=== PATIENT | female | born 1985 | race Caucasian/White ===

== ENCOUNTER 2017-07-12 21:22 | Emergency (ER) | payer OTHER ==
[2017-07-12 21:39] VITALS: BP 111/57; PULSE 91; RESP 16; TEMP 99; O2SAT 100
--- NOTE | 2017-07-12 22:03 | ED PDOC ---
HPI: General Adult Time Seen by Provider: 07/12/17 21:39 Chief Complaint (Nursing): Flu-like Symptoms Chief Complaint (Provider): cough, congestion, and fever History Per: Patient History/Exam Limitations: no limitations Onset/Duration Of Symptoms: Days (7 days) Current Symptoms Are (Timing): Still Present Additional Complaint(s): 31 y/o female presents to the ED complaining of sore throat associated with cough and congestion, onset of 1 week. She reports of self medicating with amoxicillin, dayquil and nyquil because "she had some". Today she states that she developed intermittent rash throughout her body, and applied calamine lotion with transient relief. Of note, her son was recently sick and admitted to hospital last week for bronchiolitis. [ End ] Past Medical History Reviewed: Historical Data, Nursing Documentation, Vital Signs Vital Signs: Last Vital Signs Temp 99.0 F 07/12/17 21:35 Pulse 91 H 07/12/17 21:35 Resp 16 07/12/17 21:35 BP 111/57 L 07/12/17 21:35 Pulse Ox 100 07/12/17 22:03 - Medical History PMH: No Chronic Diseases - Surgical History Surgical History: No Surg Hx - Family History Family History: States: Unknown Family Hx - Living Arrangements Living Arrangements: With Family - Social History Current smoker - smoking cessation education provided: No Ex-Smoker (has not smoked in the last 12 months): No Alcohol: None Drugs: Denies - Home Medications Home Medications: Ambulatory Orders Medication Instructions Recorded Amoxicillin 875 mg PO BID #14 tablet 11/09/15 Albuterol HFA [Ventolin HFA 90 2 puff IH [id number] PRN #90 puff 07/12/17 mcg/actuation (8 g)] DiphenhydrAMINE [Benadryl] 50 mg PO Q6 PRN #30 cap 07/12/17 Promethazine DM [Phenergan DM 5 - 10 ml PO Q8 PRN #120 ml 07/12/17 Syrup] - Allergies Allergies/Adverse Reactions: Allergies Allergy/AdvReac Type Severity Reaction Status Date / Time No Known Allergies Allergy Verified 11/09/15 13:21 Review of Systems ROS Statement: Except As Marked, All Systems Reviewed And Found Negative Constitutional: Positive for: Fever ENT: Positive for: Nose Congestion Cardiovascular: Negative for: Chest Pain Respiratory: Positive for: Cough. Negative for: Shortness of Breath, Hemoptysis Physical Exam - Reviewed Nursing Documentation Reviewed: Yes Vital Signs Reviewed: Yes - Physical Exam Skin: Positive for: Rash (urticaria to left hip area) ENT: Positive for: Normal ENT Inspection Cardiovascular/Chest: Positive for: Regular Rate, Rhythm. Negative for: Murmur Respiratory: Positive for: Normal Breath Sounds. Negative for: Respiratory Distress - ECG O2 Sat by Pulse Oximetry: 100 (RA) Pulse Ox Interpretation: Normal Medical Decision Making Medical Decision Making: Time: --22:03 Impression: --31 y/o with flu-like symptoms Plan: --sent home with prescriptions Scribe Attestation: Documented by Hussein Santos acting as a scribe for EDWIGE Fritz. Disposition - Clinical Impression Clinical Impression: Upper respiratory infection - Disposition Referrals: Cirilo Brar MD [Family Provider] - Disposition Time: 22:03 Condition: STABLE Prescriptions: Albuterol HFA [Ventolin HFA 90 mcg/actuation (8 g)] 2 puff IH [id number] PRN #90 puff PRN Reason: Cough DiphenhydrAMINE [Benadryl] 50 mg PO Q6 PRN #30 cap PRN Reason: Rash Promethazine DM [Phenergan DM Syrup] 5 - 10 ml PO Q8 PRN #120 ml PRN Reason: Cough Instructions: Urticaria (ED), Upper Respiratory Infection (ED) Forms: [employer] (Hungarian) Print Language: UGANDAN
== END 2017-07-12 22:02 | disposition home or self-care (01) ==
LOC: H.ER 21:22
DX: J21.9 Acute bronchiolitis, unspecified (principal); Z87.891 Personal history of nicotine dependence

== ENCOUNTER 2018-10-10 18:23 | Emergency (ER) | payer SELFPAY ==
[2018-10-10 19:17] VITALS: RESP 18
--- NOTE | 2018-10-10 20:54 | ED PDOC ---
HPI: General Adult Time Seen by Provider: 10/10/18 19:31 Chief Complaint (Nursing): Weakness/Neurological Deficit Chief Complaint (Provider): Weakness/Neurological Deficit History Per: Patient History/Exam Limitations: no limitations Onset/Duration Of Symptoms: Days Current Symptoms Are (Timing): Still Present Additional Complaint(s): 32 y/o female presents to the ED stating that for the past six months she occasionally feels like passing while having a bowel movement. Patient reports that she feels like her blood pressure drops low while having a bowel movement on those occasions. Patient additionally complains of having intermittent shortness of breath for the past year associated with back pain that she has had for five years. Otherwise, patient denies chest pain, cough, palpitations and abdominal pain. Patient notes of having 1-2 bowel movements a week which is normal. PMD: Neeraj Green Past Medical History Reviewed: Historical Data, Nursing Documentation, Vital Signs Vital Signs: Last Vital Signs Temp 98 F 10/10/18 19:15 Pulse 60 10/10/18 19:15 Resp 18 10/10/18 19:15 BP 137/94 H 10/10/18 19:15 Pulse Ox 99 10/10/18 19:15 - Medical History PMH: No Chronic Diseases - Surgical History Surgical History: Hernia Repair - Family History Family History: States: Unknown Family Hx - Social History Current smoker - smoking cessation education provided: No Alcohol: None Drugs: Denies - Home Medications Home Medications: Ambulatory Orders Medication Instructions Recorded Amoxicillin 875 mg PO BID #14 tablet 11/09/15 Albuterol HFA [Ventolin HFA 90 2 puff IH [id number] PRN #90 puff 07/12/17 mcg/actuation (8 g)] DiphenhydrAMINE [Benadryl] 50 mg PO Q6 PRN #30 cap 07/12/17 Promethazine DM [Phenergan DM 5 - 10 ml PO Q8 PRN #120 ml 07/12/17 Syrup] - Allergies Allergies/Adverse Reactions: Allergies Allergy/AdvReac Type Severity Reaction Status Date / Time No Known Allergies Allergy Verified 10/10/18 19:15 Review of Systems ROS Statement: Except As Marked, All Systems Reviewed And Found Negative Cardiovascular: Negative for: Chest Pain, Palpitations Respiratory: Positive for: Shortness of Breath. Negative for: Cough Gastrointestinal: Negative for: Abdominal Pain Musculoskeletal: Positive for: Back Pain Neurological: Positive for: Other (LIGHTHEADEDNESS) Physical Exam - Reviewed Nursing Documentation Reviewed: Yes Vital Signs Reviewed: Yes - Physical Exam Appears: Positive for: Well, No Acute Distress Head Exam: Positive for: ATRAUMATIC, NORMOCEPHALIC Skin: Positive for: Normal Color, Warm, Dry Eye Exam: Positive for: Normal appearance, EOMI, PERRL Neck: Positive for: Normal, Painless ROM, Supple Cardiovascular/Chest: Positive for: Regular Rate, Rhythm. Negative for: Murmur Respiratory: Positive for: Normal Breath Sounds. Negative for: Respiratory Distress Gastrointestinal/Abdominal: Positive for: Normal Exam, Soft. Negative for: Tenderness Extremity: Positive for: Normal ROM. Negative for: Deformity Neurological/Psych: Positive for: Awake, Alert, Oriented (x3). Negative for: Motor/Sensory Deficits - Laboratory Results Result Diagrams: 10/10/18 21:41 10/10/18 21:41 - ECG O2 Sat by Pulse Oximetry: 99 (RA) Pulse Ox Interpretation: Normal - Radiology X-Ray: Interpreted by Me X-Ray Interpretation: No Acute Disease Medical Decision Making Medical Decision Making: Time: 2040 Plan: -- EKG -- CMP -- ED Urine -- ED Urine Dipstick -- CBC with Differentials -- D Dimer -- PTT -- Prothrombin Time -- CXR Two Views -- Orhto BP -- Urinalysis 23:20 Pt states she wants to leave and will come back for results tomorrow. Scribe Attestation: Documented by Eamon Shaw, acting as a scribe Mario Mariano MD. Provider Scribe Attestation: All medical record entries made by the Scribe were at my direction and personally dictated by me. I have reviewed the chart and agree that the record accurately reflects my personal performance of the history, physical exam, medical decision making, and the department course for this patient. I have also personally directed, reviewed, and agree with the discharge instructions and disposition. Disposition - Clinical Impression Clinical Impression: Defecation symptom, Chronic shortness of breath - Disposition Referrals: [facility] [Outside] Disposition: Routine/Home Disposition Time: 23:21 Condition: STABLE Instructions: Shortness of Breath (Dyspnea) Forms: [employer] (Spanish)
[2018-10-10 21:48] LABS: BASO % 0.6 % (0.0-2.0); EOS # 0.1 K/uL (0.0-0.7); EOS % 1.8 % (0.0-4.0); HEMOGLOBIN 15.1 g/dL (12.0-16.0); LYMPH % 32.8 % (20.0-40.0); MEAN CELL VOLUME 90.7 fl (81.0-99.0); MEAN CORPUSCULAR HEMOGLOBIN 30.2 pg (27.0-31.0); MEAN CORPUSCULAR HGB CONC 33.4 g/dL (33.0-37.0); MEAN PLATELET VOLUME 8.6 fl (7.2-11.7); MONO # 0.5 K/uL (0.0-0.8); MONO % 8.9 % (0.0-10.0); NEUT # 3.4 K/uL (1.8-7.0); NEUT % 55.9 % (50.0-75.0); NRBC % 0.1 % (0.0-0.0); RBC 4.98 Mil/uL (3.80-5.20); RED CELL DISTRIBUTION WIDTH 12.4 % (11.5-14.5); WHITE BLOOD COUNT 6.2 K/uL (4.8-10.8)
[2018-10-10 21:52] LABS: PROTHROMBIN TIME 11.2 Seconds (9.8-13.1)
[2018-10-10 21:54] LABS: ALB/GLOB RATIO 1.2 (1.0-2.1); ALT/SGPT 25 U/L (9-52); AST/SGOT 21 U/L (14-36); BLOOD UREA NITROGEN 13 mg/dl (7-17); CALCIUM 9.1 mg/dL (8.4-10.2); GFR NON-AFRICAN AMERICAN > 60
[2018-10-10 21:55] LABS: PARTIAL THROMBOPLASTIN TIME 27.8 Seconds (25.6-37.1)
[2018-10-10 22:14] LABS: SQUAMOUS EPITHIAL 5 /hpf (0-5); URINE BILIRUBIN NEGATIVE (NEGATIVE); URINE BLOOD SMALL (NEGATIVE); URINE CLARITY SLIGHTY-CLOUDY (Clear); URINE COLOR YELLOW (YELLOW); URINE GLUCOSE (UA) NEG (NEGATIVE); URINE LEUKOCYTE ESTERASE NEG Leu/uL (Negative); URINE PROTEIN 30 mg/dL (NEGATIVE); URINE UROBILINOGEN 0.2-1.0 mg/dL (0.2-1.0)
[2018-10-10 23:08] LABS: D DIMER < 200 ng/mlDDU (0-230)
[2018-10-11 00:03] VITALS: BP 130/81; PULSE 82; TEMP 98.5; O2SAT 98
--- NOTE | 2018-10-11 08:49 | RAD ---
Date of service: 10/10/2018 HISTORY: SOB COMPARISON: Chest radiographs 10/01/2017. TECHNIQUE: Chest PA and lateral views FINDINGS: LUNGS: No active pulmonary disease. PLEURA: No significant pleural effusion identified. No pneumothorax apparent. CARDIOVASCULAR: No aortic atherosclerotic calcification present. Normal cardiac size. No pulmonary vascular congestion. OSSEOUS STRUCTURES: No significant abnormalities. VISUALIZED UPPER ABDOMEN: Normal. OTHER FINDINGS: None. IMPRESSION: No interval acute cardiopulmonary disease appreciated.
--- NOTE | 2018-10-11 09:49 | CARD ---
APPROVED REPORT Date of service: 10/10/2018 EKG Measurement Heart [id number] <Conclusion> Sinus bradycardia with sinus arrhythmia Otherwise normal ECG
== END 2018-10-10 23:25 | disposition home or self-care (01) ==
LOC: H.ER 18:23
DX: R06.02 Shortness of breath (principal); K59.02 Outlet dysfunction constipation